=== PATIENT | male | born 2000 | race Caucasian/White ===

== ENCOUNTER 2023-05-18 12:54 | Emergency (ER) | payer OTHER, BC ==
[~2023-05-18] VITALS: Ht 188 cm; Wt 88.5 kg
[2023-05-18 12:58] VITALS: BP 149/97; PULSE 109; RESP 20; TEMP 98; O2SAT 99
[2023-05-18] MEDS ORDERED: IBUPROFEN 600 MG TAB PO ONE (14:50)
[2023-05-18] MEDS ORDERED: CYCL-711 PO (15:31)
[2023-05-18] MEDS ORDERED: IBUP-2213 PO (15:31)
[2023-05-18 15:46] VITALS: BP 149/97; PULSE 109; RESP 20; TEMP 98; O2SAT 99
== END 2023-05-18 15:46 | disposition home or self-care (01) ==
LOC: MED 12:54
DX: S16.1XXA Strain of muscle, fascia and tendon at neck level, initial encounter (principal); R51.9 Headache, unspecified; M54.6 Pain in thoracic spine; M79.10 Myalgia, unspecified site; R03.0 Elevated blood-pressure reading, without diagnosis of hypertension; Z79.899 Other long term (current) drug therapy; V89.2XXA Person injured in unspecified motor-vehicle accident, traffic, initial encounter; Y93.89 Activity, other specified; Y92.89 Other specified places as the place of occurrence of the external cause; Y99.8 Other external cause status
CPT/HCPCS: 99283